=== PATIENT | female | born 1935 | race Caucasian/White ===

== ENCOUNTER 2020-06-13 07:54 | Outpatient (REF) | payer MEDICARE, SELFPAY ==
[2020-06-13 11:38] LABS: Alanine Aminotransferase 24 U/L (0-31); Anion Gap 12 (12-20); Blood Urea Nitrogen 9 mg/dL (9-16); Carbon Dioxide 29 mmol/L (22-29); Chloride 103 mmol/L (96-108); Estimated Glomerular Filt Rate > 60; Potassium 4.8 mmol/l (3.3-5.1); Sodium 139 mmol/L (135-145)
== END 2020-06-13 07:55 | disposition home or self-care (01) ==
LOC: HO.HMGCLDS 07:54
PROVIDERS: PCP Family Medicine; Visit Provider Family Medicine
DX: I10 Essential (primary) hypertension (principal); E78.00 Pure hypercholesterolemia, unspecified; Z79.899 Other long term (current) drug therapy
CPT/HCPCS: 80051; 82550; 82565; 84460; 84520

== ENCOUNTER 2020-12-08 06:32 | Outpatient (REF) | payer MEDICARE, SELFPAY ==
[2020-12-08 12:32] LABS: Alanine Aminotransferase 18 U/L (0-31); Anion Gap 13 (12-20); Blood Urea Nitrogen 10 mg/dL (9-16); Carbon Dioxide 28 mmol/L (22-29); Chloride 104 mmol/L (96-108); Estimated Glomerular Filt Rate > 60; Potassium 5.1 mmol/L (3.3-5.1); Sodium 140 mmol/L (135-145)
== END 2020-12-08 06:33 | disposition home or self-care (01) ==
LOC: HO.HMGCLDS 06:32
PROVIDERS: PCP Family Medicine; Visit Provider Family Medicine
DX: I10 Essential (primary) hypertension (principal); E78.00 Pure hypercholesterolemia, unspecified; Z79.899 Other long term (current) drug therapy
CPT/HCPCS: 36415; 80051; 82550; 82565; 84460; 84520

== ENCOUNTER 2021-07-05 06:15 | Outpatient (REF) | payer MEDICARE, SELFPAY ==
[2021-07-05 11:59] LABS: Anion Gap 10 (12-20); Blood Urea Nitrogen 8 mg/dL (9-16); Carbon Dioxide 29 mmol/L (22-29); Chloride 104 mmol/L (96-108); Estimated Glomerular Filt Rate > 60; Potassium 5.1 mmol/L (3.3-5.1); Sodium 138 mmol/L (135-145)
== END 2021-07-05 06:16 | disposition home or self-care (01) ==
LOC: HO.HMGCLDS 06:15
PROVIDERS: PCP Family Medicine; Visit Provider Family Medicine
DX: I10 Essential (primary) hypertension (principal)
CPT/HCPCS: 36415; 80051; 82565; 84520

== ENCOUNTER 2021-12-21 06:06 | Outpatient (REF) | payer MEDICARE, SELFPAY ==
[2021-12-21 11:18] LABS: MANUAL DIFF FLAG NO
[2021-12-21 11:23] LABS: Basophils Percent Auto 0.4 % (0-2); Eosinophils Absolute Auto 0.1 X10*3/uL (0.0-0.4); Eosinophils Percent Auto 1.3 % (0-4); Hematocrit 44.2 % (37.0-47.0); Hemoglobin 14.1 g/dl (12.0-16.0); Imm Gran Abs Auto 0.02 X10*3/uL (0.00-0.03); Imm Gran Pct Auto 0.3 % (0.0-0.4); Lymphocytes Absolute Auto 2.6 X10*3/uL (1.2-4.9); Lymphocytes Percent Auto 36.8 % (20-40); Mean Corpuscular HGB Conc 31.9 g/dl (31.0-35.0); Mean Corpuscular Hemoglobin 29.1 pg (27.0-33.0); Mean Corpuscular Volume 91.1 fL (80.0-98.0); Mean Platelet Volume 9.7 fL (9.4-12.3); Monocytes Absolute Auto 0.7 X10*3/uL (0.1-1.2); Neutrophils Absolute Auto 3.6 x10*3/uL (2.0-8.3); Neutrophils Percent Auto 51.2 % (45-73); Platelet Count 222 X10*3/uL (160-400); Red Blood Count 4.85 X10*6/uL (4.20-5.50); Red Cell Distribution Width 13.1 % (11.0-16.0)
[2021-12-21 11:52] LABS: Alanine Aminotransferase 19 U/L (0-31); Anion Gap 14 (12-20); Blood Urea Nitrogen 10 mg/dL (9-16); Carbon Dioxide 27 mmol/L (22-29); Chloride 105 mmol/L (96-108); Estimated Glomerular Filt Rate > 60; Potassium 4.7 mmol/L (3.3-5.1); Sodium 141 mmol/L (135-145)
== END 2021-12-21 06:07 | disposition home or self-care (01) ==
LOC: HO.HMGCLDS 06:06
PROVIDERS: Visit Provider Family Medicine
DX: I10 Essential (primary) hypertension (principal); E78.00 Pure hypercholesterolemia, unspecified; R63.4 Abnormal weight loss; Z79.899 Other long term (current) drug therapy
CPT/HCPCS: 36415; 80051; 82550; 82565; 84460; 84520; 85025

== ENCOUNTER 2022-05-16 09:23 | Outpatient (REF) | payer MEDICARE, SELFPAY ==
--- NOTE | ~2022-05-16 | US_ITS ---
EXAMINATION: US THYROID CLINICAL INFORMATION: Nontoxic multinodular goiter. Bilateral thyroid nodules. COMPARISON: Ultrasound soft tissue head/neck thyroid dated 10/15/2018 and 08/28/2015. TECHNIQUE: Linear transducer grayscale and color Doppler examination with attention to the region of the thyroid. FINDINGS: SIZE: Measurements of the thyroid lobes and nodules are given in sagittal, anteroposterior and transverse dimensions respectively. Right Thyroid Lobe: 4.6 x 1.1 x 1.2 cm, volume 3.3 mL. Previously 4.3 x 1.0 x 1.4 cm, volume 3.3 mL. Parenchyma: The gland echotexture is homogeneous. Thyroid vascularity is normal. Left Thyroid Lobe: 3.3 x 1.1 x 1.2 cm, volume 2.3 mL. Previously 3.2 x 1.2 x 1.2 cm, volume 2.5 mL. Parenchyma: The gland echotexture is homogeneous. Thyroid vascularity is normal. Isthmus: 0.3 cm in maximum AP dimension. Previously 0.2 cm. Estimated total number of nodules greater than or equal to 1 cm: 1. [place] nodules are described as follows: 1. Location: Right mid. Size: 0.5 x 0.8 x 0.5 cm, volume 0.11 mL. Previously: 0.5 x 0.2 x 0.3 cm, volume 0.016 mL. Nodule characteristics: Composition: Solid/almost completely solid (2). Echogenicity: Hypoechoic (2). Shape: Not taller than wide (0). Margins: Smooth (0). Echogenic Foci: None (0). ACR TI-RADS total points: 4 ACR TI-RADS category: 4 2. Location: Right inferior. Size: 0.7 x 0.7 x 0.6 cm, volume 0.14 mL. Previously: 1.2 x 0.6 x 0.7 cm, volume 0.26 mL. Nodule characteristics: Composition: Cystic(0). ACR TI-RADS total points: 0 ACR TI-RADS category: 1 3. Location: Left mid. Size: 1.5 x 1.0 x 0.9 cm, volume 0.76 mL. Previously: 1.3 x 0.8 x 0.9 cm, volume 0.49 mL. Nodule characteristics: Composition: Solid (2). Echogenicity: Isoechoic (1). Shape: Not taller than wide (0). Margins: Smooth (0). Echogenic Foci: None (0). ACR TI-RADS total points: 3 ACR TI-RADS category: 3 4. Location: Left superior. Size: 0.9 x 0.5 x 0.64 cm, volume 0.16 mL. Previously: Not documented on the prior study. Nodule characteristics: Composition: Mixed cystic and solid (1). Echogenicity: Hypoechoic (2). Shape: Not taller than wide (0). Margins: Smooth (0). Echogenic Foci: None (0). ACR TI-RADS total points: 3 ACR TI-RADS category: 3 NODES: No lymphadenopathy is seen in the tissue surrounding the thyroid gland. US/US thyroid IMPRESSION: Left superior 0.9 cm thyroid nodule not previously imaged and left mid 1.5 cm nodule. ACR TI RADS 3 criteria. Recommend follow-up ultrasound in 12 months. ACR TI-RADS RECOMMENDATION REFERENCE: Ultrasound-guided fine-needle aspiration, followup ultrasound, no further follow up. * TR1 (0 point) and TR 2 (2 points): No FNA or follow up * TR3 (3 points): FNA if more than or equal to 2.5 cm in maximum dimension, followup ultrasound in 1, 3 and 5 years if 1.5 to 2.4 cm in maximum dimension. * TR4 (4-6 points): FNA if more than or equal to 1.5 cm in maximum dimension, followup ultrasound in 1, 2, 3 and 5 years if 1 to 1.4 cm in maximum dimension. * TR5 (more than or equal to 7 points): FNA if more than or equal to 1 cm in maximum dimension, followup ultrasound every year for 5 years if 0.5 to 0.9 cm in maximum dimension. * TR3, TR4 or TR5 nodules that are below the size threshold for follow up receive no follow up.
== END 2022-05-16 09:24 | disposition home or self-care (01) ==
LOC: HO.US 09:23
PROVIDERS: Visit Provider Family Medicine
DX: E04.2 Nontoxic multinodular goiter (principal)
CPT/HCPCS: 76536

== ENCOUNTER 2022-07-24 08:58 | Outpatient (REF) | payer MEDICARE, SELFPAY ==
[2022-07-24 12:21] LABS: Alanine Aminotransferase 23 U/L (0-31); Anion Gap 13 (12-20); Blood Urea Nitrogen 10 mg/dL (9-16); Carbon Dioxide 27 mmol/L (22-29); Chloride 106 mmol/L (96-108); Estimated Glomerular Filt Rate > 60; Potassium 5.2 mmol/L (3.3-5.1); Sodium 141 mmol/L (135-145)
== END 2022-07-24 08:59 | disposition home or self-care (01) ==
LOC: HO.HMGCLDS 08:58
PROVIDERS: PCP Family Medicine; Visit Provider Family Medicine
DX: I10 Essential (primary) hypertension (principal); E78.00 Pure hypercholesterolemia, unspecified; Z79.899 Other long term (current) drug therapy
CPT/HCPCS: 36415; 80051; 82550; 82565; 84460; 84520

== ENCOUNTER 2023-09-09 06:26 | Outpatient (REF) | payer MEDICARE, SELFPAY ==
[2023-09-09 12:00] LABS: Alanine Aminotransferase 18 U/L (0-31); Anion Gap 10 (12-20); Aspartate Amino Transferase 21 U/L (5-31); Blood Urea Nitrogen 10 mg/dL (9-16); Carbon Dioxide 27 mmol/L (22-29); Chloride 104 mmol/L (96-108); Cholesterol 194 mg/dL (<200); Estimated Glomerular Filt Rate > 60; Glucose Fasting 86 mg/dL (60-99); HDL Cholesterol 70 mg/dL (>40); LDL Cholesterol Calculated 105 mg/dL (<100); Potassium 4.2 mmol/L (3.3-5.1); Sodium 137 mmol/L (135-145); Triglycerides 99 mg/dL (<150)
== END 2023-09-09 06:27 | disposition home or self-care (01) ==
LOC: HO.HMGCLDS 06:26
PROVIDERS: PCP Family Medicine; Visit Provider Family Medicine
DX: I10 Essential (primary) hypertension (principal); E78.00 Pure hypercholesterolemia, unspecified; Z79.899 Other long term (current) drug therapy; Z83.3 Family history of diabetes mellitus
CPT/HCPCS: 36415; 80051; 80061; 82550; 82565; 82947; 84450; 84460; 84520

== ENCOUNTER 2023-09-17 11:10 | Outpatient (REF) | payer MEDICARE, SELFPAY ==
--- NOTE | ~2023-09-17 | US_ITS ---
EXAMINATION: US EXTRACRANIAL CAROTID DUPLEX, BILATERAL CLINICAL INFORMATION: Hypercholesterolemia COMPARISON: None available. TECHNIQUE: Real-time ultrasound and Doppler techniques (integrating B-mode 2-D vascular images, Doppler spectral analysis and color-flow Doppler imaging) were utilized to interrogate the extracranial carotid arteries, the vertebral arteries and proximal subclavian arteries bilaterally. The degree of stenosis is determined by criteria similar to NASCET. FINDINGS: Right Side: 1. There is moderate atherosclerotic plaque seen in the bifurcation/proximal ICA region. 2. The common carotid artery PSV proximally is 58 cm/s and distally 71 cm/s. 3. The proximal internal carotid artery velocities are 81 cm/s systolic and 14 cm/s diastolic. 4. The proximal external carotid artery PSV is 152 cm/s. 5. The vertebral artery shows antegrade flow. 6. The subclavian artery waveforms are normal. Left Side: 1. There is moderate atherosclerotic plaque seen in the bifurcation/proximal ICA region. 2. The common carotid artery PSV proximally is 88 cm/s and distally 88 cm/s. 3. The proximal internal carotid artery velocities are 78 cm/s systolic and 10 cm/s diastolic. 4. The proximal external carotid artery PSV is 85 cm/s. 5. The vertebral artery shows antegrade flow. 6. The subclavian artery waveforms are normal. US/US carotid duplex BI IMPRESSION: 1. RIGHT: Minimal, non-hemodynamically significant stenosis of the proximal right internal carotid artery corresponding to a 0-49% stenosis by velocity criteria. 2. LEFT: Minimal, non-hemodynamically significant stenosis of the proximal left internal carotid artery corresponding to a 0-49% stenosis by velocity criteria.
== END 2023-09-17 11:11 | disposition home or self-care (01) ==
LOC: HO.US 11:10
PROVIDERS: PCP Family Medicine; Visit Provider Family Medicine
DX: R09.89 Other specified symptoms and signs involving the circulatory and respiratory systems (principal); E78.00 Pure hypercholesterolemia, unspecified
CPT/HCPCS: 93880

== ENCOUNTER 2023-12-02 11:57 | Outpatient (REF) | payer MEDICARE, SELFPAY ==
--- NOTE | ~2023-12-02 | XR_ITS ---
EXAMINATION: XR KNEE, LEFT CLINICAL INFORMATION: Left knee pain. COMPARISON: None available. TECHNIQUE: Four views of the left knee. FINDINGS: The bones are diffusely demineralized. Mild narrowing of the medial and patellofemoral compartments with tiny marginal osteophytes. Trace joint effusion. XR/XR knee LT 4V IMPRESSION: Mild degenerative changes.
== END 2023-12-02 11:58 | disposition home or self-care (01) ==
LOC: HO.XRAY 11:57
PROVIDERS: Visit Provider Family Medicine
DX: M25.562 Pain in left knee (principal)
CPT/HCPCS: 73564

== ENCOUNTER 2023-12-22 09:36 | Outpatient (REF) | payer MEDICARE, SELFPAY ==
--- NOTE | ~2023-12-22 | US_ITS ---
EXAMINATION: US THYROID CLINICAL INFORMATION: Nontoxic multinodular goiter. COMPARISON: Thyroid ultrasound 05/16/2022 and 10/15/2018. TECHNIQUE: Linear transducer ba-scale and color Doppler examination with attention to the region of the thyroid. FINDINGS: SIZE: Measurements of the thyroid lobes and nodules are given in sagittal, anteroposterior and transverse dimensions respectively. Right Thyroid Lobe: 4.9 x 1.5 x 1.3 cm, volume 4.8 mL. Previously 4.6 x 1.1 x 1.2 cm, volume 3.3 mL. Parenchyma: The gland echotexture is heterogeneous. Thyroid vascularity is normal. Left Thyroid Lobe: 4.3 x 1.2 x 1.4 cm, volume 3.7 mL. Previously 3.3 x 1.1 x 1.2 cm, volume 2.3 mL. Parenchyma: The gland echotexture is heterogeneous. Thyroid vascularity is normal. Isthmus: 0.29 cm in maximum AP dimension. Previously 0.30 cm. Estimated total number of nodules greater than or equal to 1 cm: 0. [employer] nodules are described as follows: 1. Location: Right mid. Size: 0.60 x 0.30 x 0.30 cm, volume 0.03 mL. Previously: 0.50 x 0.80 x 0.50 cm, volume 0.11 mL. Nodule characteristics: Composition: Mixed cystic and solid (1). Echogenicity: Hypoechoic (2). Shape: Not taller than wide (0). Margins: Smooth (0). Echogenic Foci: None (0). ACR TI-RADS total points: 3 Previous: 4 ACR TI-RADS category: 3 Previous: 4 Significant change in size (>/= 20% in 2 dimensions and minimal increase of 2 mm or 50% or greater increase in volume): No Change in features: Yes Change in ACR TI-RADS risk category: Yes 2. Location: Left mid. Size: 0.90 x 0.50 x 0.60 cm, volume 0.13 mL. Previously: 0.90 x 0.50 x 0.64 cm, volume 0.16 mL. Nodule characteristics: Composition: Mixed cystic and solid (1). Echogenicity: Hypoechoic (2). Shape: Not taller than wide (0). Margins: Smooth (0). Echogenic Foci: None (0). ACR TI-RADS total points: 3. Previous: 3. ACR TI-RADS category: 3. Previous: 3. Significant change in size (>/= 20% in 2 dimensions and minimal increase of 2 mm or 50% or greater increase in volume): No Change in features: No Change in ACR TI-RADS risk category: No NODES: No lymphadenopathy is seen in the tissue surrounding the thyroid gland. ADDITIONAL FINDINGS: 3. Stable size of 0.5 cm cystic nodule along the inferior aspect of the right thyroid lobe, previously 0.7 cm, which may represent an extrathyroidal cyst rather than a TR 1 right lower pole thyroid nodule as previously noted. US/US thyroid IMPRESSION: 1. Bilateral thyroid nodules, largest left 0.9 cm. 2. There is a 0.5 x 0.5 x 0.4 cm cystic nodule along the inferior aspect of the right thyroid lobe this appears to represent an extrathyroidal nodule versus an exophytic thyroid nodule on the current exam. This previously measured 0.7 x 0.7 x 0.6 cm and was felt to represent a TR 1 right lower pole thyroid nodule. Bilateral subcentimeter thyroid nodules, largest 0.9 cm left TR3 is stable. 3. Stable size of 0.5 cm cystic nodule along the inferior aspect of the right thyroid lobe, previously 0.7 cm, which may represent an extrathyroidal cyst rather than a TR1 right lower pole thyroid nodule as previously noted. ACR TI-RADS RECOMMENDATION REFERENCE: Ultrasound-guided fine-needle aspiration, follow up ultrasound, no further followup. * TR1 (0 point) and TR2 (2 points): No FNA or followup * TR3 (3 points): FNA if more than or equal to 2.5 cm in maximum dimension, follow up ultrasound in 1, 3 and 5 years if 1.5 to 2.4 cm in maximum dimension. * TR4 (4-6 points): FNA if more than or equal to 1.5 cm in maximum dimension, follow up ultrasound in 1, 2, 3 and 5 years if 1 to 1.4 cm in maximum dimension. * TR5 (more than or equal to 7 points): FNA if more than or equal to 1 cm in maximum dimension, follow up ultrasound every year for 5 years if 0.5 to 0.9 cm in maximum dimension. * TR3, TR4 or TR5 nodules that are below the size threshold for follow up receive no followup.
== END 2023-12-22 09:37 | disposition home or self-care (01) ==
LOC: HO.US 09:36
PROVIDERS: PCP Family Medicine; Visit Provider Family Medicine
DX: E04.2 Nontoxic multinodular goiter (principal)
CPT/HCPCS: 76536

== ENCOUNTER 2024-09-23 09:35 | Outpatient (REF) | payer MEDICARE, SELFPAY ==
[2024-09-23 13:43] LABS: Alanine Aminotransferase 21 U/L (0-31); Anion Gap 13 (12-20); Aspartate Amino Transferase 45 U/L (5-31); Carbon Dioxide 25 mmol/L (22-29); Chloride 103 mmol/L (96-108); Estimated Glomerular Filt Rate > 60; Potassium 4.3 mmol/L (3.3-5.1); Sodium 137 mmol/L (135-145)
== END 2024-09-23 09:36 | disposition home or self-care (01) ==
LOC: HO.HMGCLDS 09:35
PROVIDERS: PCP Family Medicine; Visit Provider Family Medicine
DX: I10 Essential (primary) hypertension (principal); E78.00 Pure hypercholesterolemia, unspecified; Z79.899 Other long term (current) drug therapy
CPT/HCPCS: 36415; 80051; 82550; 82565; 84450; 84460

== ENCOUNTER 2025-03-01 09:35 | Outpatient (AMB) | payer MEDICARE, SELFPAY ==
--- NOTE | 2025-03-01 09:36 | MHC.PC.OV ---
Vital Signs 03/01/25 09:46 Height 5 ft Weight 51.256 kg BMI 22.1 BP 130/58 L Respiration 18 Pulse 62 Pulse Source Pulse Oximeter Temp 97.7 F Temp Source Temporal Artery Scan Pulse Oximetry (%) 96 Oxygen Delivery Method Room Air Intake Visit Reasons: Routine / Dr Marie Geospatial Information Technologist Required: No Accompanied by: Self / Same As Patient Allergies No Known Allergies (No Known Allergies*) Allergy (Unverified 03/01/25 09:37) sulfa Allergy (Unknown, Uncoded 03/01/25 09:37) Unknown Medication List - Last Reconciled 03/01/25 by YANN Mitchell ascorbic acid (vitamin C) mg PO aspirin 81 mg PO DAILY atorvastatin 40 mg PO BEDTIME famotidine 40 mg PO DAILY gabapentin 300 mg PO BEDTIME magnesium oxide 500 mg PO DAILY metoprolol tartrate 25 mg PO DAILY sodium fluoride-pot nitrate 1.1-5 % dental BEDTIME Tobacco use date assessed: 03/01/25 Fall risk assessment: No Falls in past year Last assessed Fall Risk: 03/01/25 Dental Screening Dental Screen Date: 03/01/25 Did you have a dental visit in the last 12 months?: Yes Did you have a dental problem in the last 6 months where you did not have access to dental care?: No Was dental information given to patient?: No HPI HPI Comments History of Present Illness Details 89-YEAR-OLD FEMALE WITH HISTORY HYPERTENSION, HYPERLIPIDEMIA, MULTINODULAR GOITER, GERD, BILATERAL OSTEOARTHRITIS OF THE KNEES, EARLY ONSET CEREBELLAR ATAXIA, and nocturnal leg cramping presents to the office today for management of chronic conditions and to establish care. Aris driving. ne still She is very independent, lives Hypertension-blood pressure controlled. On metoprolol 25 mg daily Hyperlipidemia-on atorvastatin. Due for lipid panel Nocturnal leg cramping-on gabapentin and magnesium with good effect Multinodular goiter-euthyroid GERD-stable on famotidine Early onset cerebellar ataxia-denies any gait instability/vertigo lives alone, big house, drives. Concerns: None Health maintenance: No longer undergoing colonoscopies, mammograms Declines DEXA scan ROS: General: No fevers, malaise, unintentional weight loss HEENT: No blurred vision, diplopia. No sore throat, nasal congestion, rhinorrhea, sinus pain, ear pain Cardiovascular: No chest pain, palpitations, or leg edema Respiratory: No shortness of breath, wheezing, cough GI: No abdominal pain, nausea, vomiting, diarrhea, constipation, melena, hematochezia : No dysuria, hematuria, increased urinary frequency, decreased urinary output MSK: No myalgia, back pain Neuro: No headaches, weakness, paresthesias Skin: No rashes or lesions EXAM: Constitutional - Awake and Alert, No apparent distress Eyes - PERRL Cardiovascular - S1S2, RRR, No edema Respiratory - Normal lung expansion, Normal respiratory effort, No respiratory distress, CTA bilaterally Extremities - no calf tenderness bilaterally, no swelling Skin - Warm/Dry Neurological - Alert & oriented x3 Psychological - Appropriate affect [facility] Medical History (Updated 03/01/25 @ 10:11 by YANN Mitchell) Nocturnal leg cramps Cerebellar ataxia GERD (gastroesophageal reflux disease) HLD (hyperlipidemia) HTN (hypertension) Surgical History (Updated 02/28/25 @ 15:49 by Therese Mcconnell) History of colonoscopy (~02/01/13) Social History Housing: House Patient Tobacco Use Status: Former Tobacco user (Quite in 1999) e-Cigarette/Vaping Use: Never Used service: No Current occupational status: retired Cognitive needs: No Hearing needs: No Vision needs: Yes (Reading glasses) Questionnaire PHQ-9 Over the last 2 weeks, how often have you been bothered by any of the following problems? 1. Little interest or pleasure in doing things: not at all 2. Feeling down, depressed, or hopeless: not at all 3. Trouble falling or staying asleep, or sleeping too much: not at all 4. Feeling tired or having little energy: not at all 5. Poor appetite or overeating: not at all 6. Feeling bad about yourself - or that you are a failure or have let yourself or your family down: not at all 7. Trouble concentrating on things, such as reading the newspaper or watching television: not at all 8. Moving or speaking so slowly that other people could have noticed. Or the opposite - being so fidgety or restless that you have been moving around a lot more than usual: not at all 9. Thoughts that you would be better off or of hurting yourself in some way: not at all Total score: 0 Source: Developed by Lance Dobsonet B.W. Sagar, Cipriano Russell and colleagues, with an educational ricardo from [employer]. Thrive Questionnaire Date Thrive assessed: 03/01/25 I am a: Patient Within the past 12 months, did the food you bought not last and you didn't have the money to get more?: Never true Within the past 12 months, did you worry whether your food would run out before you got money to buy more?: Never true Do you have trouble paying for medicines?: No Do you have trouble getting transportation to medical appointments?: No Do you have trouble paying your heating and electricity bill?: No Do you have trouble taking care of your child, family member or friend?: No Do you have trouble with day-to-day activities such as bathing, preparing meals, shopping, managing finances, etc.?: No Are you currently unemployed and looking for a job?: No Are you interested in more education?: No Please select the resources that you would like help with: None THRIVE Score: 0 FRANCY-7 AMB Questionnaire FRANCY-7 Date FRANCY - 7 assessed: 03/01/25 Feeling nervous, anxious, or on edge: 0 = Not at all Not being able to stop or control worryin = Not at all Worrying too much about different things: 0 = Not at all Trouble relaxin = Not at all Being so restless that it is hard to sit still: 0 = Not at all Becoming easily annoyed or irritable: 0 = Not at all Feeling afraid as if something awful might happen: 0 = Not at all Total FRANCY-7 score (0-4 normal; 5-9 mild; 10-14 moderate; 15-21 severe): 0 Source: Developed by Drs. Michael Renee, Isamar Keith, Cipriano Russell and colleagues, with an educational ricardo from [employer] [facility] [employer]. Physical exam (Primary Care) Vital Signs: Last Vital Signs Temp 97.7 F 03/01/25 09:46 Pulse 62 03/01/25 09:46 Resp 18 03/01/25 09:46 BP 130/58 L 03/01/25 09:46 Pulse Ox 96 03/01/25 09:46 Oxygen Delivery Method Room Air 03/01/25 09:46 BMI result Body Mass Index 22.1 Tobacco/Smoking Status: Tobacco use Status Tobacco use date assessed 03/01/25 03/01/25 09:48 Patient Tobacco Use Status Former Tobacco user (Quite 03/01/25 09:48 in 1999) e-Cigarette/Vaping Use Never Used 03/01/25 09:48 PHQ-9: PHQ-9 Score PHQ-9: Total score 0 03/01/25 09:58 Thrive Assessment: Date of Thrive Assessment Date Thrive assessed 03/01/25 03/01/25 09:58 Coding Level of Care Code New Pt Level 4 (50151) Complex EM visit Add On G2211 Diagnoses HTN (hypertension) I10 HLD (hyperlipidemia) E78.5 GERD (gastroesophageal reflux disease) K21.9 Cerebellar ataxia G11.9 Nocturnal leg cramps G47.62 Assessment & Plan Assessment & Plan (1) HTN (hypertension): Code(s): I10 - Essential (primary) hypertension Category: Medical Plan: Controlled. Continue metoprolol (2) HLD (hyperlipidemia): Code(s): E78.5 - Hyperlipidemia, unspecified Category: Medical Plan: Lipid panel ordered. Continue atorvastatin. Diet low in saturated fats and highly processed foods (3) GERD (gastroesophageal reflux disease): Code(s): K21.9 - Gastro-esophageal reflux disease without esophagitis Category: Medical Plan: Continue famotidine. Stable (4) Cerebellar ataxia: Code(s): G11.9 - Hereditary ataxia, unspecified Category: Medical Plan: Stable, asymptomatic. Monitor for now (5) Nocturnal leg cramps: Code(s): G47.62 - Sleep related leg cramps Category: Medical Plan: Continue magnesium and gabapentin Plan Follow-up in the office in 6 months. Labs to be completed following visit. Declines DEXA scan. Calcium vitamin-D recommended as well as weight-bearing exercise Orders: Orders Basic Metabolic Panel Today E78.5 - Hyperlipidemia, unspecified, G11.9 - Hereditary ataxia, unspecified, I10 - Essential (primary) hypertension, K21.9 - Gastro-esophageal reflux disease without esophagitis Liver Panel Today E78.5 - Hyperlipidemia, unspecified, G11.9 - Hereditary ataxia, unspecified, I10 - Essential (primary) hypertension, K21.9 - Gastro-esophageal reflux disease without esophagitis Complete Blood Count Auto Diff Today E78.5 - Hyperlipidemia, unspecified, G11.9 - Hereditary ataxia, unspecified, I10 - Essential (primary) hypertension, K21.9 - Gastro-esophageal reflux disease without esophagitis Lipid Panel Today E78.5 - Hyperlipidemia, unspecified, G11.9 - Hereditary ataxia, unspecified, I10 - Essential (primary) hypertension, K21.9 - Gastro-esophageal reflux disease without esophagitis
[2025-03-01 09:46] VITALS: BP 130/58; PULSE 62; RESP 18; TEMP 36.5; O2SAT 96; BMI 22.1
--- OUTSIDE RECORDS SUMMARY | 2025-03-01 10:11 | XMS_ITS | Patient Health Record ---
Author Organization [facility] Address [address] [place] [address] Care Team Providers Care Logistics Support Name Role Phone Frank (RETIRED) Joseluis WORKMAN Primary Care Provider Unavailable Michael Kapoor Unavailable [phone] Allergies Allergen (clinical drug ingredient) Drug/Non Drug Allergy documented on EMR Reaction Allergy Type Onset Date Status Sulfacet-R Unknown Drug Allergy Active Reason For Referral No Information Medications Medication SIG (Take, Route, Frequency, Duration) Notes Start Date End Date Status Lipitor 40mg 07/07/2024 07/07/2024 Activ e Gemfibrozil 600mg 07/07/2024 07/07/2024 Active Famotidine 40mg 07/07/2024 07/07/2024 Ac tive Aspir-81 07/07/2024 07/07/2024 Active Multivitamin 07/07/2024 07/07/2024 Activ e Magnesium 250mg 07/07/2024 07/07/2024 Ac tive Metoprolol & Diet Manage Prod 07/07/2024 07/07/2024 Active Problems Problem Type SNOMED Code ICD Code Onset Dates Problem Status W/U Status Risk Notes Problem Already on aspirin (361677495) Long-term (current) use of aspirin (V58.66) Active confirmed Problem Colon cancer screening (V76.51) Active confirmed Problem History of adenomatous polyp of colon (449289358) History of adenomatous polyp of colon (V12.72) Active confirmed Plan Of Treatment Future Test Test Name Order Date COLONOSCOPY 11/24/2012 Insurance Providers Payer Name Payer Address Payer Phone Subscriber Number Group Number Insured Name Patient Relationship to Insured Coverage Start Date Coverage End Date MEDICARE OF [employer] [address] [place] [address] [id number] ABAR, JOANIE Self - patient is the insured [employer] CLAIMS [address] [place] [address] [phone] [id number] JOANIE FRIAS Self - patient is the insured Medical (General) History Medical History History ICD Code Reflux Colonoscopy 08-17-2007--neg. except diver ticulosis and internal hemorrhoids Colon polyps-tubular adenoma removed in 11/2003 hyperlipidemia hypertension Tachycardia Denies NC,DM,CVA,Lung disease,renal dise ase
== END 2025-03-01 10:10 | disposition home or self-care (01) ==
LOC: HO.HMCHD 09:35
PROVIDERS: PCP Family Medicine; Visit Provider Physician Assistant
DX: I10 Essential (primary) hypertension (principal); E78.5 Hyperlipidemia, unspecified; K21.9 Gastro-esophageal reflux disease without esophagitis; G11.9 Hereditary ataxia, unspecified; G47.62 Sleep related leg cramps

== ENCOUNTER → 2025-03-01 09:35 | Outpatient (BNVA) | payer MEDICARE, SELFPAY | PROVIDERS: PCP Family Medicine; Visit Provider Physician Assistant | DX: I10 Essential (primary) hypertension (principal); E78.5 Hyperlipidemia, unspecified; K21.9 Gastro-esophageal reflux disease without esophagitis; G11.9 Hereditary ataxia, unspecified; E04.2 Nontoxic multinodular goiter; G47.62 Sleep related leg cramps; Z79.899 Other long term (current) drug therapy; Z13.39 Encounter for screening examination for other mental health and behavioral disorders; Z13.30 Encounter for screening examination for mental health and behavioral disorders, unspecified | CPT/HCPCS: 96127; 99202 ==

== ENCOUNTER 2025-03-01 10:17 | Outpatient (REF) | payer MEDICARE, SELFPAY ==
[2025-03-01 11:18] LABS: MANUAL DIFF FLAG NO
[2025-03-01 11:23] LABS: Hematocrit 39.3 % (37.0-47.0); Hemoglobin 13.3 g/dl (12.0-16.0); Imm Gran Abs Auto 0.03 X10*3/uL (0.00-0.03); Imm Gran Pct Auto 0.4 % (0.0-0.4); Lymphocytes Absolute Auto 2.4 X10*3/uL (1.2-4.9); Mean Corpuscular HGB Conc 33.8 g/dl (31.0-35.0); Mean Corpuscular Hemoglobin 29.8 pg (27.0-33.0); Mean Corpuscular Volume 87.9 fL (80.0-98.0); NRBC Abs Auto 0.000 X10*3/uL (0.0-0.012); NRBC Pct Auto 0.0 /100WBC (0.0-0.2); Platelet Count 225 X10*3/uL (160-400); Red Blood Count 4.47 X10*6/uL (4.20-5.50); White Blood Count 6.7 X10*3/uL (4.8-10.8)
[2025-03-01 12:01] LABS: Alanine Aminotransferase 24 U/L (0-31); Albumin Level 4.3 g/dL (3.5-5.0); Alkaline Phosphatase 94 U/L (39-117); Anion Gap 13 (12-20); Aspartate Amino Transferase 31 U/L (5-31); Blood Urea Nitrogen 8 mg/dL (9-16); Calcium 9.9 mg/dL (8.4-10.2); Carbon Dioxide 26 mmol/L (22-29); Chloride 102 mmol/L (96-108); Cholesterol 186 mg/dL (<200); Estimated Glomerular Filt Rate > 60; HDL Cholesterol 60 mg/dL (>40); Potassium 5.0 mmol/L (3.3-5.1); Sodium 136 mmol/L (135-145); Total Protein 7.1 g/dL (6.5-8.0); Triglycerides 203 mg/dL (<150)
== END 2025-03-01 10:18 | disposition home or self-care (01) ==
LOC: HO.10HDL 10:17
PROVIDERS: Visit Provider Physician Assistant
DX: I10 Essential (primary) hypertension (principal); E78.5 Hyperlipidemia, unspecified; K21.9 Gastro-esophageal reflux disease without esophagitis; G11.9 Hereditary ataxia, unspecified
CPT/HCPCS: 36415; 80048; 80061; 80076; 85025